=== PATIENT | female | born 1980 | race Caucasian/White ===

== ENCOUNTER 2019-03-09 06:41 | Emergency (ER) | payer OTHER ==
[~2019-03-09] VITALS: Ht 160 cm; Wt 58.1 kg
[2019-03-09] MEDS ORDERED: CLONAZEPAM 0.50.5 M1 PO (06:53)
[2019-03-09] MEDS ORDERED: LAMICTAL (GREE1 EACH PO (06:54)
[2019-03-09] MEDS ORDERED: ADDERALL 30 MG30 MG PO (06:54)
[2019-03-09] MEDS ORDERED: TRAZODONE 150150 M1 PO (06:54)
[2019-03-09] MEDS ORDERED: HYDROCODON-ACE1 EAC8 PO (07:34)
[2019-03-09] MEDS ORDERED: ZOFRAN ODT4 MG PO (07:34)
[2019-03-09 07:37] VITALS: BP 137/81
== END 2019-03-09 07:37 | disposition home or self-care (01) ==
LOC: M.ERS 06:41
DX: G43.909 Migraine, unspecified, not intractable, without status migrainosus (principal); F41.9 Anxiety disorder, unspecified; F32.9 Major depressive disorder, single episode, unspecified; F90.9 Attention-deficit hyperactivity disorder, unspecified type; F17.210 Nicotine dependence, cigarettes, uncomplicated